=== PATIENT | male | born 1995 | race Caucasian/White ===

== ENCOUNTER 2017-10-16 12:33 | Emergency (ER) | payer BC ==
[~2017-10-16] VITALS: Ht 188 cm; Wt 81.5 kg
[2017-10-16 12:42] VITALS: BP 147/109; PULSE 98; RESP 16; TEMP 98.4; O2SAT 97
[2017-10-16] MEDS ORDERED: OSEL75 PO (12:56)
--- NOTE | 2017-10-16 12:57 | PD ---
HPI Chief Complaint: Cold / Flu Symptoms Time Seen by Provider: 12:49 Travel History International Travel<30 days: No Contact w/Intl Traveler<30days: No Traveled to known affect area: No History of Present Illness HPI 22-year-old male here with fever, chills, bodyaches, cough times one day. Exposure to flu. Symptom severity is moderate. No aggravating or alleviating factors. Denies headache, visual changes, neck pain. PFSH Past Medical History Medical History: Denies Significant Hx Diabetes: Yes (02/22/16 PATIENT DENIES; has h/o hypoglycemia) Patient Takes Glucophage: No Diminished Hearing: No Immunizations Current: Yes Tetanus Vaccination: > 5 Years Influenza Vaccination: No Past Surgical History Abdominal Surgery: Yes (INGUNAL HERNIA REPAIR X2) Other Surgery: Yes (INGUINAL HERNIA REPAIR 1995, AND 1998) Social History Alcohol Use: Yes (SOCIAL) Tobacco Use: No Substance Use: No Allergies-Medications (Allergen,Severity, Reaction): Coded Allergies: amoxicillin (Unverified Allergy, Mild, RASH, 10/16/17) Reported Meds & Prescriptions Reported Meds & Active Scripts Active No Active Prescriptions or Reported Medications Review of Systems Except as stated in HPI: all other systems reviewed are Neg General / Constitutional: Positive: Fever, Chills Eyes: No: Visual changes HENT: Positive: Sore Throat, No: Headaches Cardiovascular: No: Chest Pain or Discomfort Respiratory: Positive: Cough Gastrointestinal: No: Abdominal Pain Genitourinary: No: Dysuria Musculoskeletal: Positive: Myalgias Skin: No Rash Physical Exam Narrative GENERAL: Alert male. Well-appearing. SKIN: Warm and dry. No rash. HEAD: Normocephalic. EYES: No injection or drainage. THROAT: Mild Pharyngeal erythema without tonsillar hypertrophy or exudate. Uvula is midline. Airway is patent. Mucous members are moist. NECK: Supple, trachea midline. No meningismus. CARDIOVASCULAR: Regular rate and rhythm without murmurs, gallops, or rubs. RESPIRATORY: Breath sounds equal bilaterally. No accessory muscle use. GASTROINTESTINAL: Abdomen soft, non-tender, nondistended. Data Data Last Documented VS Vital Signs Date Time Temp Pulse Resp B/P (MAP) Pulse Ox O2 Delivery O2 Flow Rate FiO2 10/16/17 12:42 98.4 98 16 147/109 (122) 97 Orders Orders Influenzae A/B Antigen (10/16/17 12:43) Ed Discharge Order (10/16/17 12:49) MDM Medical Decision Making Medical Screen Exam Complete: Yes Emergency Medical Condition: Yes Differential Diagnosis Influenza, viral illness, URI Narrative Course 21-year-old male here with flulike illness times one day. Exposure to flu. Patient will be treated for presumptive flu. Diagnosis Primary Impression: Viral illness Referrals: Primary Care Physician Additional Instructions: Take [id number] ibuprofen 800 mg every 6 hours as needed for pain and fever. Take [id number] Tylenol as needed for pain and fever. Stable hydrated by drinking fluids frequently. Rest. Scripts Oseltamivir (Tamiflu) 75 Mg Cap 75 MG PO BID for Mgmt Viral Infection for 5 Days, #10 CAP 0 Refills Prov: Sally Bregman 10/16/17 Disposition: 01 DISCHARGE HOME Condition: Stable Sally Bergman Oct 16, 2017 12:57
== END 2017-10-16 13:09 | disposition home or self-care (01) ==
LOC: PHEFT 12:33
DX: B34.9 Viral infection, unspecified (principal)
CPT/HCPCS: 87804; 99283